=== PATIENT | male | born 1970 | race Caucasian/White ===

== ENCOUNTER → 2020-03-20 07:43 | Outpatient (BNVA) | payer MEDICAID, SELFPAY | PROVIDERS: PCP Family Medicine; Referring Provider Family Medicine; Visit Provider Surgery Vascular Surgery | DX: I83.11 Varicose veins of right lower extremity with inflammation (principal) | CPT/HCPCS: 36482 ==

== ENCOUNTER 2020-03-23 15:02 | Outpatient (REF) | payer MEDICAID, SELFPAY ==
--- NOTE | 2020-03-23 | US_ITS ---
EXAMINATION: US VENOUS ULTRASOUND WITH DOPPLER LOWER EXTREMITY, RIGHT CLINICAL INFORMATION: Post vena seal procedure COMPARISON: Previous exam 01/29/2020 TECHNIQUE: Ultrasound of the deep veins is performed from the hip to the calf with compression sonography and color and pulse Doppler assessment. Spectral analysis with color-flow imaging is performed. FINDINGS: There is normal venous compression and respiratory variation and augmented flow. The visualized common femoral vein, superficial femoral vein, profunda femoral vein, popliteal vein, and the trifurcation region shows no evidence of deep venous thrombosis. There is echogenic material seen in the greater saphenous vein 4 cm from the saphenofemoral junction post venaseal procedure. There is no significant popliteal fossa cyst. US/US venous duplex LE RT IMPRESSION: No DVT demonstrated in the right lower extremity.
== END 2020-03-23 15:03 | disposition home or self-care (01) ==
LOC: HO.US 15:02
PROVIDERS: Visit Provider Surgery Vascular Surgery
DX: M79.604 Pain in right leg (principal)
CPT/HCPCS: 93971

== ENCOUNTER → 2020-04-02 15:00 | Outpatient (BNVA) | payer MEDICAID, SELFPAY | PROVIDERS: PCP Family Medicine; Referring Provider Family Medicine; Visit Provider Surgery Vascular Surgery | DX: Z48.812 Encounter for surgical aftercare following surgery on the circulatory system (principal) | CPT/HCPCS: 99212 ==

== ENCOUNTER 2020-12-26 09:15 | Outpatient (REF) | payer MEDICAID, SELFPAY ==
[2020-12-28 08:12] LABS: HBc Num1 0.15 S/CO (0.00-0.79); HBsAGNum1 0.18 S/CO (0.00-0.99); Hepatitis B Core Antibody Nonreactive (Nonreactive); Hepatitis B Surface Antigen Negative (Negative)
[2020-12-28 08:14] LABS: ~Hepatitis C Antibody Nonreactive (Nonreactive)
[2020-12-28 08:29] LABS: ~Hepatitis B Surface Antibody REACTIVE (Nonreactive)
[2020-12-30 04:42] LABS: Hepatitis A Antibody IgG REACTIVE (Nonreactive); ~Hepatitis A Antibody IgG 13.17 S/CO (0.00-0.99)
[2020-12-30 04:52] LABS: Hepatitis A Antibody IgM 0.28 Index (0-0.79); ~Hepatitis A Antibody IgM Nonreactive (Nonreactive)
== END 2020-12-26 09:16 | disposition home or self-care (01) ==
LOC: HO.LAB 09:15
PROVIDERS: PCP Internal Medicine; Visit Provider Internal Medicine
DX: Z01.84 Encounter for antibody response examination (principal); Z11.59 Encounter for screening for other viral diseases; R79.89 Other specified abnormal findings of blood chemistry
CPT/HCPCS: 36415; 86704; 86706; 86708; 86709; 86803; 87340

== ENCOUNTER → 2021-01-20 11:09 | Outpatient (BNVA) | payer MEDICAID, SELFPAY | PROVIDERS: PCP Internal Medicine; Visit Provider Surgery | DX: K42.9 Umbilical hernia without obstruction or gangrene (principal) | CPT/HCPCS: 99202 ==

== ENCOUNTER 2021-01-25 09:24 | Outpatient (REF) | payer MEDICAID, SELFPAY ==
--- NOTE | ~2021-01-25 | US_ITS ---
EXAMINATION: US ABDOMEN COMPLETE CLINICAL INFORMATION: Abnormal findings of blood chemistry. COMPARISON: None TECHNIQUE: Real-time imaging of the abdominal viscera. FINDINGS: PANCREAS: Normal. Tail obscured by gas. ABDOMINAL AORTA: The proximal, mid, and distal segments are normal in caliber. INFERIOR VENA CAVA: Visualized portions are normal. LIVER: There is diffuse increased liver parenchymal echogenicity. No focal hepatic mass is seen. The liver is normal in size and contour. No biliary ductal dilatation. GALLBLADDER: Normal. The gallbladder is physiologically distended without evidence of stones, sludge, polyps, wall thickening or pericholecystic fluid. COMMON BILE DUCT: Normal in caliber measuring 0.6 cm in diameter. RIGHT KIDNEY: Normal. No hydronephrosis. No renal calculi or focal parenchymal lesions. The kidney measures 11.3 cm in maximum dimension. LEFT KIDNEY: Normal. No hydronephrosis. No renal calculi or focal parenchymal lesions. The kidney measures 11.5 cm in maximum dimension. SPLEEN: No focal finding. The spleen measures 13.1 cm in maximum dimension. FREE FLUID: None. US/US abdomen complete IMPRESSION: 1. There is generalized increase in hepatic echotexture, consistent with fatty infiltration or hepatocellular disease. Please correlate clinically. No focal hepatic mass or intrahepatic biliary dilatation is seen. 2. There is borderline splenomegaly. 3. Technically limited ultrasound examination of the pancreatic tail.
== END 2021-01-25 09:25 | disposition home or self-care (01) ==
LOC: HO.US 09:24
PROVIDERS: Visit Provider Internal Medicine
DX: E66.01 Morbid (severe) obesity due to excess calories (principal); R79.89 Other specified abnormal findings of blood chemistry
CPT/HCPCS: 76700

== ENCOUNTER 2021-02-05 06:37 | Day surgery (SDC) | payer MEDICAID, SELFPAY ==
--- NOTE | 2021-02-04 09:15 | HO.ANESPROP2 ---
Documented by User: Lisette Mohan NP 02/04/21 09:16 HPI - Anesthesia Eval Consult details Narrative: 50yo M for Hernia Repair Umbilical with Mesh PMFSH Active Problems Active Problems: All Active Problems (Updated 01/20/21 @ 11:31 by Dane Rodriguez MD) Varicose veins of right lower extremity with inflammation (Acute) Umbilical hernia (Acute) Hyperlipidemia (Acute) Hypertension (Acute) Obstructive sleep apnea (Acute) Morbid obesity (Acute) Past Medical History Medical History Hyperlipidemia Hypertension Morbid obesity Obstructive sleep apnea Umbilical hernia Family History Family History Father No problems noted. Mother No problems noted. Brother No problems noted. Brother No problems noted. Sister No problems noted. Sister No problems noted. Sister No problems noted. Sister No problems noted. Son No problems noted. Son No problems noted. Surgical History Surgical History (Updated 02/05/21 @ 10:06 by Robina Vaca MD) H/O knee surgery H/O prior ablation treatment Social History Social History Alcohol intake: current Alcohol intake frequency: holidays/special occasions only Alcohol type: beer Patient Tobacco Use Status: Never used Tobacco Use of substances other than those prescribed or required for medical reasons: No Have you been hit, kicked, punched, or otherwise hurt by someone within the past year? If so, by whom?: No Are you DNR?: No Advance Directives: No Advance Directives Information Provided: Yes Meds Allergies Allergy/AdvReac Type Severity Reaction Status Date / Time No Known Allergies Allergy Verified 01/29/21 10:15 [No Known Allergies*] Home Medications Medication Instructions Recorded Confirmed Last Taken Type cholecalciferol (vitamin D3) 125 125 mcg PO DAILY 01/20/21 01/29/21 Unknown History mcg (5,000 unit) capsule hydrochlorothiazide 25 mg tablet 25 mg PO DAILY 01/20/21 01/29/21 Unknown History lisinopril 10 mg tablet 10 mg PO DAILY 01/20/21 01/29/21 Unknown History multivitamin 1 tab PO DAILY 01/20/21 01/29/21 Unknown History Exam Exam Date and Time: February 04, [id number] Assessment and Plan Assessment Anesthesia Assessment: Chart Reviewed Documented by User: Robina Vaca MD 02/05/21 10:10 PMF Active Problems Active Problems: All Active Problems (Updated 01/20/21 @ 11:31 by Dane Rodriguez MD) Varicose veins of right lower extremity with inflammation (Acute) Umbilical hernia (Acute) Hyperlipidemia (Acute) Hypertension (Acute) Obstructive sleep apnea (Acute). Uses CPAP machine sometimes Morbid obesity (Acute) Past Medical History Medical History Hyperlipidemia Hypertension Morbid obesity Obstructive sleep apnea Umbilical hernia Family History Family History Father No problems noted. Mother No problems noted. Brother No problems noted. Brother No problems noted. Sister No problems noted. Sister No problems noted. Sister No problems noted. Sister No problems noted. Son No problems noted. Son No problems noted. Family history of problems with anesthesia: No Surgical History Surgical History (Updated 02/05/21 @ 10:06 by Robina Vaca MD) H/O knee surgery H/O prior ablation treatment History of Problems with Anesthesia: No Social History Social History Alcohol intake: current Alcohol intake frequency: holidays/special occasions only Alcohol type: beer Patient Tobacco Use Status: Never used Tobacco Use of substances other than those prescribed or required for medical reasons: No Have you been hit, kicked, punched, or otherwise hurt by someone within the past year? If so, by whom?: No Are you DNR?: No Advance Directives: No Advance Directives Information Provided: Yes Meds Allergies Allergy/AdvReac Type Severity Reaction Status Date / Time No Known Allergies Allergy Verified 01/29/21 10:15 [No Known Allergies*] Home Medications Medication Instructions Recorded Confirmed Last Taken Type cholecalciferol (vitamin D3) 125 125 mcg PO DAILY 01/20/21 01/29/21 Unknown History mcg (5,000 unit) capsule hydrochlorothiazide 25 mg tablet 25 mg PO DAILY 01/20/21 01/29/21 Unknown History lisinopril 10 mg tablet 10 mg PO DAILY 01/20/21 01/29/21 Unknown History multivitamin 1 tab PO DAILY 01/20/21 01/29/21 Unknown History Exam Height,Weight and Vital Signs: Height 5 ft 7 in Weight 129.727 kg Vital Signs Temp Pulse Resp BP Pulse Ox 02/05/21 06:56 97.7 F 78 18 141/81 H 96 Airway Mallampati Class: II TM Dist: >3cm Neck ROM: Full Loose/Missing/Broken Teeth: Yes (Molars extracted) Heart: RRR Lungs: CTAB Assessment and Plan Assessment Anesthesia Assessment: Anesthesia Plan Discussed Final Anesthetic Review Family History of Problems with Anesthesia: No History of Problems with Anesthesia: No NPO: Yes ASA Class: III Final Preanesthetic Review: No Changes in Pt Med Stat, Meds/Allgs Chart Reviewed, Consent Obtained/Reviewed and Anes Risks/Benef Reviewed Patient Risk: Intermediate Procedure Risk: Low Assessment/Block/Sedation in SS: Assess/Block/Sedation-SS Anesthetic Plan Anesthetic Plan: GA Disposition: Standard PACU
[2021-02-05 06:56] VITALS: BP 141/81; PULSE 78; RESP 18; TEMP 36.5; O2SAT 96
[2021-02-05 07:18] VITALS: BMI 44.8
[2021-02-05] MEDS: Lactated Ringers 1,000 ML 100 ML IVCONT (07:36)
--- NOTE | 2021-02-05 10:47 | W.PM.OPN ---
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 In view of symptoms, he wanted to proceed with repair. He understood the technique of repair with mesh. He was aware of the risks, benefits, and alternatives. The patient was brought to the operating room placed supine the table under general anesthesia via laryngeal mask airway. The abdomen is prepped and draped in the usual sterile fashion. A surgical time-out was done. The patient received cefazolin 2 g IV preoperatively The hernia was seen on the area of the umbilicus at the supra umbilical margin. This was a large hernia, about 4 cm in diameter with chronic incarceration. I infiltrated the planned line of incision with lidocaine 1%. I made a supraumbilical curvilinear transverse incision using a blade 15. This was carried down through the full-thickness of the skin subcutaneous fat electrocautery. I gently then proceeded to do sharp dissection of the umbilicus to lift this off as a flap. I used electrocautery as well as the Metzenbaum scissors to separate the hernia off of this. By doing so was able to then do sharp dissection the entire hernia contents using Metzenbaum scissors and electrocautery all the way down to the fascial level. The patient had a thick amount of subcutaneous fat in view of his morbid obesity so dissection took some time. We then proceeded to gently dissect the sac off there was the fascia and by doing so we excised most of the sac itself. This was sent as specimen. The contents of the hernia was examined carefully and this consisted of large amounts of omentum. I carefully the hernia contents off the fascial edge using Metzenbaum scissors and electrocautery I then carefully and slowly reduced the hernia. The hernia defect was small and was about 2.5 cm so reduction of this entire large omental fat took a while. Eventually I was able to completely reduce this hernia. I applied a Fabiola clamp on the fascia. I examined the underside of the fascial defect and this appeared to be clear of adhesions. I used a small-sized Ventralex mesh and positioned this flat under the fascial defect. I secured this mesh with Prolene 2 sutures to the fascial edge on both sides to go the Prolene straps. The straps were then cut flush on the fascial level. I then closed the fascia with a running Maxon 1 stitch. I applied Dexon 3-0 sutures to the umbilicus to tack this back down to the fascial layer. I reapposed the subcutaneous layer with Dexon 3-0 interrupted sutures. Skin closure was achieved with Dexon 4-0 subcuticular stitch. Steri-Strips and dressings were applied. The incision was infiltrated with Marcaine 0.5% for postop analgesia and the procedure was completed The patient tolerated procedure well. There were no complication noted. Initial and final counts of sponges and instruments were correct. Estimated blood loss was about 10 cc. The patient was extubated without difficulty and transferred to the recovery room with stable vital signs.
--- NOTE | 2021-02-05 10:54 | P.BOP_ITS ---
Brief Operative Note Date of Service: 02/05/21 Pre-op diagnosis: Umbilical hernia Post-op diagnosis: same Procedure: Repair of chronically incarcerated umbilical hernia with mesh Implants: Mesh Surgeon: Dane Rodriguez MD Anesthesia: GLMA Was an Geodetic Survey Director used for this Procedure?: No Estimated blood loss (mL): 10 Pathology: other (Hernia sac) Condition: stable Disposition: PACU
[2021-02-05 11:00] VITALS: BP 132/68; PULSE 88; RESP 16; TEMP 36.8; O2SAT 97
[2021-02-05 11:05] VITALS: BP 139/65; PULSE 81; RESP 16; O2SAT 100
[2021-02-05 11:10] VITALS: BP 146/94; PULSE 85; RESP 16; O2SAT 100
[2021-02-05 11:15] VITALS: BP 140/80; PULSE 87; RESP 16; O2SAT 95
[2021-02-05] MEDS: Acetaminophen 325 MG TABLET 650 MG PO (12:05)
[2021-02-05 12:06] VITALS: BP 124/59; PULSE 81; RESP 16; O2SAT 97
[2021-02-05] MEDS: oxyCODONE HCl Immed Release 5 MG TABLET PO (12:06)
== END 2021-02-05 13:05 | disposition home or self-care (01) ==
PROVIDERS: PCP Internal Medicine; Visit Provider Surgery
PROC: (CPT 49587; principal; 2021-02-05 11:20)
DX: K42.0 Umbilical hernia with obstruction, without gangrene (principal); I10 Essential (primary) hypertension; Z79.899 Other long term (current) drug therapy
CPT/HCPCS: 49587; 88302; C1781; J0690; J1100; J2250; J2370; J2405; J2765; J3010

== ENCOUNTER → 2021-02-19 15:05 | Outpatient (BNVA) | payer MEDICAID, SELFPAY | PROVIDERS: PCP Internal Medicine; Referring Provider Internal Medicine; Visit Provider Surgery | DX: Z48.815 Encounter for surgical aftercare following surgery on the digestive system (principal); Z87.19 Personal history of other diseases of the digestive system | CPT/HCPCS: 99212 ==

== ENCOUNTER 2021-05-20 08:58 | Outpatient (REF) | payer MEDICAID, SELFPAY | END 2021-05-20 08:59 | disposition home or self-care (01) | LOC: HO.LAB 08:58 | PROVIDERS: Visit Provider Internal Medicine | DX: Z20.822 Contact with and (suspected) exposure to COVID-19 (principal) | CPT/HCPCS: C9803; U0003; U0005 ==

== ENCOUNTER → 2021-12-16 10:30 | Outpatient (BNVA) | payer MEDICAID, SELFPAY | PROVIDERS: PCP Internal Medicine; Visit Provider Surgery | DX: R19.05 Periumbilic swelling, mass or lump (principal); E66.01 Morbid (severe) obesity due to excess calories; Z87.19 Personal history of other diseases of the digestive system | CPT/HCPCS: 99212 ==

== ENCOUNTER 2023-04-13 09:13 | Outpatient (REF) | payer OTHER, SELFPAY ==
--- NOTE | ~2023-04-13 | XR_ITS ---
EXAMINATION: XR KNEE, LEFT CLINICAL INFORMATION: Pain COMPARISON: None available. TECHNIQUE: Four views of the left knee. FINDINGS: Moderate medial joint space narrowing with marginal spurring but no fracture, dislocation or destructive process. No joint effusion. Patellofemoral spurring noted as well. XR/XR knee LT 4V IMPRESSION: Degenerative changes noted. No acute findings.
--- NOTE | ~2023-04-13 | XR_ITS ---
EXAMINATION: XR KNEE, RIGHT CLINICAL INFORMATION: Pain COMPARISON: None available. TECHNIQUE: Four views of the right knee. FINDINGS: Moderate medial joint space narrowing with marginal osteophyte formation. There is patellofemoral degenerative changes well. There is no fracture, dislocation or destructive process. No joint effusion. XR/XR knee RT 4V IMPRESSION: Degenerative change noted. No acute findings.
== END 2023-04-13 09:14 | disposition home or self-care (01) ==
LOC: HO.HHCX 09:13
PROVIDERS: Visit Provider Family Medicine
DX: M25.561 Pain in right knee (principal); M25.562 Pain in left knee
CPT/HCPCS: 73564

== ENCOUNTER 2023-05-24 10:20 | Outpatient (REF) | payer MEDICAID, SELFPAY ==
[2023-05-24 17:04] LABS: Alanine Aminotransferase 47 U/L (0-40); Albumin Level 4.2 g/dL (3.5-5.0); Alkaline Phosphatase 76 U/L (39-117); Anion Gap 12 (12-20); Aspartate Amino Transferase 31 U/L (5-37); Bilirubin Total 0.4 mg/dL (0.0-1.0); Blood Urea Nitrogen 17 mg/dL (9-16); Calcium 9.9 mg/dL (8.4-10.2); Carbon Dioxide 30 mmol/L (22-29); Chloride 100 mmol/L (96-108); Cholesterol 192 mg/dL (<200); Estimated Glomerular Filt Rate > 60; Glucose Random 80 mg/dL (60-115); HDL Cholesterol 42 mg/dL (>40); LDL Cholesterol Calculated 121 mg/dL (<100); Potassium 4.2 mmol/L (3.3-5.1); Sodium 138 mmol/L (135-145); Triglycerides 147 mg/dL (<150)
[2023-05-24 17:06] LABS: TSH reflex Free T4 3.37 uIU/mL (0.32-4.0)
[2023-05-25 07:56] LABS: HIV AB/AG Nonreactive (Nonreactive); HIV Num 1 0.05 S/CO (0.00-0.99)
== END 2023-05-24 10:21 | disposition home or self-care (01) ==
LOC: HO.CHCLDS 10:20
PROVIDERS: Visit Provider Internal Medicine
DX: Z00.00 Encounter for general adult medical examination without abnormal findings (principal); E66.01 Morbid (severe) obesity due to excess calories
CPT/HCPCS: 36415; 80053; 80061; 84443; 87389

== ENCOUNTER 2024-06-03 09:08 | Outpatient (REF) | payer OTHER, SELFPAY ==
--- NOTE | ~2024-06-03 | XR_ITS ---
CLINICAL HISTORY: Low back pain Radiographs of the lumbar spine, 3 views Comparison: None Findings: Mild levocurvature with the apex at L3/L4. No fracture. The vertebral body heights are preserved. There is mild multilevel intervertebral disc space narrowing with mild endplate osteophytosis. Mild lower lumbar facet hypertrophy. The soft tissues are normal. Impression: No acute findings. Mild degenerative change. This document has been electronically signed by: Sara Huynh MD on 06/03/2024 16:37:59
[2024-06-03 09:32] LABS: MANUAL DIFF FLAG NO
[2024-06-03 10:18] LABS: Basophils Percent Auto 0.8 % (0-2); Eosinophils Absolute Auto 0.2 X10*3/uL (0.0-0.4); Eosinophils Percent Auto 3.1 % (0-4); Hematocrit 42.1 % (42.0-52.0); Hemoglobin 14.2 g/dl (14.0-18.0); Imm Gran Abs Auto 0.03 X10*3/uL (0.00-0.03); Imm Gran Pct Auto 0.6 % (0.0-0.4); Lymphocytes Absolute Auto 1.5 X10*3/uL (1.2-4.9); Lymphocytes Percent Auto 28.6 % (20-40); Mean Corpuscular HGB Conc 33.7 g/dl (31.0-36.0); Mean Corpuscular Hemoglobin 29.5 pg (27.0-33.0); Mean Corpuscular Volume 87.3 fL (80.0-98.0); Monocytes Absolute Auto 0.4 X10*3/uL (0.1-1.2); Monocytes Percent Auto 7.2 % (2-11); Neutrophils Absolute Auto 3.1 x10*3/uL (2.0-8.3); Neutrophils Percent Auto 59.7 % (45-73); Platelet Count 246 X10*3/uL (160-400); Red Blood Count 4.82 X10*6/uL (4.60-5.80); White Blood Count 5.1 X10*3/uL (4.8-10.8)
[2024-06-03 12:21] LABS: Alanine Aminotransferase 36 U/L (0-40); Albumin Level 4.1 g/dL (3.5-5.0); Alkaline Phosphatase 74 U/L (39-117); Anion Gap 10 (12-20); Aspartate Amino Transferase 29 U/L (5-37); Blood Urea Nitrogen 14 mg/dL (9-16); Calcium 9.2 mg/dL (8.4-10.2); Carbon Dioxide 24 mmol/L (22-29); Chloride 107 mmol/L (96-108); Cholesterol 226 mg/dL (<200); Estimated Glomerular Filt Rate > 60; Glucose Random 99 mg/dL (60-115); HDL Cholesterol 44 mg/dL (>40); LDL Cholesterol Calculated 150 mg/dL (<100); Potassium 4.1 mmol/L (3.3-5.1); Sodium 137 mmol/L (135-145); TSH reflex Free T4 2.15 uIU/mL (0.32-4.0); Total Protein 7.8 g/dL (6.5-8.0); Triglycerides 164 mg/dL (<150)
[2024-06-03 12:29] LABS: Bilirubin Total 0.7 mg/dL (0.0-1.0)
== END 2024-06-03 09:09 | disposition home or self-care (01) ==
LOC: HO.XRAY 09:08
PROVIDERS: PCP Internal Medicine; Visit Provider Internal Medicine
DX: I10 Essential (primary) hypertension (principal); M54.50 Low back pain, unspecified
CPT/HCPCS: 36415; 72100; 80053; 80061; 84443; 85025

== ENCOUNTER → 2024-06-03 09:34 | Outpatient (BNV) | payer OTHER, SELFPAY | PROVIDERS: PCP Internal Medicine; Visit Provider Radiology Diagnostic Radiology | DX: M54.50 Low back pain, unspecified (principal) | CPT/HCPCS: 72100 ==

== ENCOUNTER 2024-08-09 16:16 | Outpatient (REF) | payer OTHER, SELFPAY ==
--- OUTSIDE RECORDS SUMMARY | 2024-08-09 16:50 | XMS_ITS | Encounter Summary ---
Author Organization [employer] Address [address] [place] [address] Care Team Providers Care Sr. Manager Name Role Phone Elaina Wilhelm MD Primary Care Provider [phone] Encounter Details Date Type Department Care Team ([facility] st Contact Info) Description 06/07/2024 Orders Only [facility] [address], [place] [id number] Elaina Wilhelm MD [address] [place] [address] Social History Tobacco Use Types Packs/Day Years Used Date Smoking Tobacco: Never Smokeless Tobacco: Never Alcohol Use Standard Drinks/Week Comments Yes 12 (1 standard drink = 0.6 oz pu re alcohol) Alcohol Answer Date Recorded How often do you have a drink containing alcohol ? 3 05/19/2022 How many drinks containing a lcohol do you have on a typical day when you are drinking? 2 05/19/2022 How often do you have six or more drinks on one occasion? 2 05/19/2022 Depression Answer Date Recorded Patient Health Questionnaire-9 Score 0 05/24/2023 Patient Health Questionnaire-9 Score 0 05/24/2023 Last PHQ-9: Questionnaire Data Not on file 1 07/25/2022 Housing Stability Answer Date Recorded What is your housing situation today? I have torito knight 05/16/[address] you li ve. Do you have problems with any of the following? None of the above 05/16/2023 Food Insecurity Answer Date Recorded Within the past 12 months, y ou worried that your food would run out before you got money to buy more: Never True 05/16/2023 Within the past 12 months,th e food you bought just didn't last and you didn't have enough money to get more: Never True Transportation Answer Date Recorded In the past 12 months, has l ack of transportation kept you from medical appts, meetings, work or from getting things needed for daily living? No 05/16/2023 Utilities Answer Date Recorded In the past 12 months, has t he electric, gas, oil or water company threatened to shut off services in your home? No 05/16/2023 Depression Answer Date Recorded Patient Health Questionnaire-2 Score 0 05/24/2023 Sex and Gender Information Value Date Recorded Sex Assigned at Male 03/28/2022 10:32 AM EDT Legal Sex Male 10:32 AM EDT Gender Identity Male 03/28/2022 10:32 AM EDT Sexual Orientation Straight 03/28/2022 10 :32 AM EDT documented as of this encounter Plan of Treatment Not on file documented as of this encounter Visit Diagnoses Not on filedocumented in this encounter Additional Health Concerns Assessment Noted Time PHQ-9 Depression Total Score: 0 05/24/20 23 10:12 AM EST documented as of this encounter Care Teams Sr. Manager Relationship Specialty Start Date End Date Elaina Wilhelm MD [address] [place] [id number] PCP - General Internal Medicine 10/06/20 documented as of this encounter
--- OUTSIDE RECORDS SUMMARY | 2024-08-09 16:50 | XMS_ITS | Encounter Summary ---
Author Organization [facility] Address [address] [place] [address] [address] [place] [address] Care Team Providers Care Voice Over Announcer Name Role Phone Elaina Wilhelm MD Primary Care Provider [phone] Reason for Referral * Medications - Authorized Specialty Diagnoses / Procedures Referred By Contac t Referred To Contact Diagnoses Morbid obesity (CMS/HCC) Elaina Wilhelm MD [address] [place] [address] Phone: tel: fax: Referral ID Status Reason Start Date Expiration Date V isits Requested Visits Authorized [id number] Authorized 1 1 * Imaging (Routine) - Authorized Specialty Diagnoses / Procedures Referred By Contac t Referred To Contact Radiology Diagnoses Steatosis of liver Procedures US Abdomen Complete Elaina Wilhelm MD [address] [place] [address] Phone: tel: fax: [address] Phone: tel: fax: Referral ID Status Reason Start Date Expiration Date V isits Requested Visits Authorized [id number] Authorized 08/09/2024 08/09/2025 1 1 Encounter Details Date Type Department Care Team (Late st Contact Info) Description 08/09/2024 4:00 PM EDT Office Visit [facility] [address] [place] [address] Elaina Wilhelm MD [address] [place] [address] Benign essential hypertension (Primary Dx); Dyslipidemia; Steatosis of liver; Dietary counseling; Exercise counseling; Class 3 severe obesity due to excess calories with serious comorbidity and body mass index (BMI) of 40.0 to 44.9 in adult (CMS/HCC); Screening for colon cancer; Morbid obesity (CMS/HCC); Essential (primary) hypertension; Chronic pain of right knee; Strain of left hamstring muscle, initial encounter Social History Tobacco Use Types Packs/Day Years [...] Date Recorded Patient Health Questionnaire-9 Score 0 08/09/2024 Patient Health Questionnaire-9 Score 0 08/09/2024 Last PHQ-9: Questionnaire Data Not on file 0 08/09/2024 Housing Stability Answer Date Recorded What is your housing situation today? I have torito knight 08/09/[address] you li ve. Do you have problems with any of the following? None of the above 08/09/2024 Food Insecurity Answer Date Recorded Within the past 12 months, y ou worried that your food would run out before you got money to buy more: Never True 08/09/2024 Within the past 12 months,th e food you bought just didn't last and you didn't have enough money to get more: Never True Transportation Answer Date Recorded In the past 12 months, has l ack of transportation kept you from medical appts, meetings, work or from getting things needed for daily living? No 08/09/2024 Utilities Answer Date Recorded In the past 12 months, has t he electric, gas, oil or water company threatened to shut off services in your home? No 08/09/2024 Depression Answer Date Recorded Patient Health Questionnaire-2 Score 0 08/09/2024 Internet Access Answer Date Recorded Internet Access Q1 Yes 08/09/2024 Internet Access Q2 Not on file 08/09/2024 Sex and Gender Information Value Date Recorded Sex Assigned at Male 03/28/2022 10:32 AM EDT Legal Sex Male 10:32 AM EDT Gender Identity Male 03/28/2022 10:32 AM EDT Sexual Orientation Straight 03/28/2022 10 :32 AM EDT documented as of this encounter Last Filed Vital Signs Vital Sign Reading Time Taken Comments Blood Pressure 119/70 08/09/2024 3:47 PM EDT Pulse 83 08/09/2024 3:47 PM EDT Temperature 36.7 ??C (98 ??F) 08/09/2024 3:47 PM EDT Respiratory Rate 20 08/09/2024 3:47 PM EDT Oxygen Saturation 97% 08/09/2024 3:47 PM EDT Inhaled Oxygen Concentration - - Weight 128 kg (283 lb) 08/09/2024 3:47 PM EDT Height 170.2 cm (5' 7 ) 08/09/2024 3:47 PM EDT Body Mass Index 44.32 08/09/2024 3:47 PM EDT documented in this encounter Progress Notes * Elaina Wilhelm MD - 08/09/2024 4:00 PM EDT Subjective Patient ID: Jerald Woods is a 54 y.o. male who presents for No chief complaint on file.. HPI 1) history of hypertension. Patient is very compliant to his medication. He needs his medications to be refilled today. 2) history of chronic low back pain. Had a recent x-ray of the lumbar spine showing mild degenerative disc disease. He works on his feet about 10 hours a day. 3) 2 to 3 months history of right knee pain exacerbated by standing for long. Of time. No swelling fever or other constitutional symptoms reported. 4) history of severe obesity. Prescribed Zepbound in April which was approved but unfortunately patient had to travel and could not pick up attendant the prescription. He was told to get the prescription resent to his pharmacy. Patient Active Problem List Diagnosis Benign essential hypertension Chronic cough Dyslipidemia Lung mass Morbid obesity (CMS/HCC) Sleep apnea Steatosis of liver Chronic pain of both knees Strep throat Current Outpatient Medications on File Prior to Visit Medication Sig Dispense Refill Acetaminophen Extra Strength 500 MG tablet TAKE 1 TABLET BY MOUTH EVERY 6 HOURS NEEDED 90 tablet0 amoxicillin (Amoxil) 500 MG capsule Take 1 tab po bid for 10 days 20 capsule 0 cholecalciferol (D3-5) 5,000 Units tablet Take 1 tablet by mouth at bed time. cholecalciferol (Vitamin D-3) 125 MCG (5000 UT) capsule Take 125 mcg by mouth in the morning. fluconazole (Diflucan) 150 MG tablet 100 mg once a day x 5 days 5 tablet 0 ketoconazole (NIZOral) 2 % shampoo APPLY TOPICALLY TO THE AFFECTED AREA(S) TWICE A WEEK 120 mL 2 [DISCONTINUED] Diclofenac Sodium 1 % gel To apply to the affected area 3 times a day 100 g 1 [DISCONTINUED] hydroCHLOROthiazide (HYDRODiuril) 25 MG tablet TAKE 1 TABLET BY MOUTH EVERY DAY 90 tablet 0 [DISCONTINUED] lisinopril 10 MG tablet TAKE 1 TABLET BY MOUTH EVERY DAY 90 tablet 1 [DISCONTINUED] Multiple Vitamin (Multivitamin) tablet TAKE 1 TABLET BY MOUTH EVERY DAY IN THE MORNING 90 tablet 0 [DISCONTINUED] Tirzepatide-Weight Management (Zepbound) 2.5 MG/0.5ML solution auto-injector Inject 0.5 mL (2.5 mg) under the skin 1 (one) time per week. 2 mL 1 No current facility-administered medications on file prior to visit. No Known Allergies Review of Systems Constitutional: Negative for appetite change, chills and diaphoresis. Eyes: Negative for photophobia, pain and redness. Respiratory: Negative for cough and choking. Musculoskeletal: Positive for arthralgias. Negative for gait problem and joint swelling. Objective Physical Exam Constitutional: General: He is not in acute distress. Appearance: Normal appearance. He is obese. He is not ill-appearing, toxic- appearing or diaphoretic. Cardiovascular: Rate and Rhythm: Normal rate. Pulmonary: Effort: Pulmonary effort is normal. Musculoskeletal: General: Normal range of motion. Right knee: No bony tenderness. Normal range of motion. No tenderness. Left knee: No bony tenderness. Normal range of motion. No tenderness. Neurological: Mental Status: He is alert. Assessment/Plan Diagnoses and all orders for this visit: Benign essential hypertension Comments: BP is at goal To continue with the current medication for now. Dyslipidemia Comments: Repeat lipid panel prior to the next visit Medication will be adjusted accordingly Low-cholesterol diet Orders: - Lipid Panel, Standard; Future Steatosis of liver Comments: Repeat ultrasound of the liver Patient will be contacted with results. Orders: - US Abdomen Complete; Future Dietary counseling Exercise counseling Class 3 severe obesity due to excess calories with serious comorbidity and body mass index (BMI) of40.0 to 44.9 in adult ([facility]) Reviewed indications for pharmacotherapy with patient, which is treatment for patient w/ obesity ora patient with a BMI > 27 w/ CV risk factors who have failed lifestyle modifications alone. These are always prescribed in combination with ongoing lifestyle modification; and will be titrated up from the lowest dose. Will start patient on Zepbound, given know efficacy. Reviewed mechanism of action with patient. Discussed side effects with patient: nausea, vomiting, diarrhea & risk of pancreatitis. No contraindications identified: , hx of pancreatitis, hx of medullary thyroid cancer or MEN 2. Discussed calorie deficit, recommended reduction of 20-30% of maintenance calories; ash kier boiler referral offered. Recommended to decrease soda and sugary beverage consumption. Recommended at least 20 g per meal of protein to assist with satiety. Recommended at least 150 min/week of moderate intensity exercise. Screening for colon cancer - Cologuard?? colon cancer screening; Future Morbid obesity ([facility]) Comments: Weight loss recommended Orders: - Tirzepatide-Weight Management (Zepbound) 2.5 MG/0.5ML solution auto-injector; Inject 0.5 mL (2.5 mg) under the skin 1 (one) time per week. Essential (primary) hypertension - lisinopril 10 MG tablet; Take 1 tablet (10 mg) by mouth Once per day. Chronic pain of right knee - XR Knee 4+ Views Right; Future - Diclofenac Sodium 1 % gel; To apply to the affected area 3 times a day Strain of left hamstring muscle, initial encounter - Diclofenac Sodium 1 % gel; To apply to the affected area 3 times a day Other orders - hydroCHLOROthiazide (HYDRODiuril) 25 MG tablet; TAKE 1 TABLET BY MOUTH EVERY DAY - Multiple Vitamin (Multivitamin) tablet; TAKE 1 TABLET BY MOUTH EVERY DAY IN THE MORNING documented in this encounter Plan of Treatment Scheduled Orders Name Type Priority Associated Diagnoses Orde r Schedule Lipid Panel, Standard Lab Routine Dyslipidemia Expected: 08/09/2024 (Approximate), Expires: 08/09/2025 US Abdomen Complete Imaging Routine Steatosis of liver Expected: 08/09/2024, Expires: 08/09/2025 Cologuard?? colon cancer screening Lab Routine Screening for colon cancer Expected: 08/09/2024 (Approximate), Expires: 08/09/2025 XR Knee 4+ Views Right Imaging Routine Chronic pain of right knee Expected: 08/09/2024, Expires: 08/09/2025 documented as of this encounter Visit Diagnoses Diagnosis Benign essential hypertension- Primary Essential hypertension, benign Dyslipidemia Other and unspecified hyperlipidemia Steatosis of liver Other chronic nonalcoholic liver disease Dietary counseling Dietary surveillance and counseling Exercise counseling Class 3 severe obesity due to excess calories with serious comorbidity and body mass index (BMI) of 40.0 to 44.9 in adult (CMS/HCC) Screening for colon cancer Special screening for malignant neoplasms, colon Morbid obesity (CMS/HCC) Morbid obesity Essential (primary) hypertension Unspecified essential hypertension Chronic pain of right knee Strain of left hamstring muscle, initial encounter documented in this encounter Additional Health Concerns Assessment Noted Time PHQ-9 Depression Total Score: 0 08/10/19 25 3:49 PM EDT documented as of this encounter Care Teams Voice Over Announcer Relationship Specialty Start Date End Date Elaina Wilhelm MD [address] [place] [address] PCP - General Internal Medicine 10/06/20 documented as of this encounter
--- OUTSIDE RECORDS SUMMARY | 2024-08-09 16:50 | XMS_ITS | Encounter Summary ---
Author Organization [facility] Address [address] [facility] [address] [place] [address] Care Team Providers Care Tile Roofer Name Role Phone Elaina Wilhelm MD Primary Care Provider [phone] Encounter Details Date Type Department Care Team (Latest Contact Info) Description 08/09/2024 Travel Social History Tobacco Use Types Packs/Day Years [...] documented as of this encounter Care Teams Tile Roofer Relationship Specialty Start Date End Date Elaina Wilhelm MD [address] [place] [address] PCP - General Internal Medicine 10/06/20 documented as of this encounter
--- OUTSIDE RECORDS SUMMARY | 2024-08-09 16:50 | XMS_ITS | Encounter Summary ---
Author Organization [facility] Address [address] [facility] [address] [place] [address] Care Team Providers Care Center Medical And Lab Director Name Role Phone Elaina Wilhelm MD Primary Care Provider [phone] Reason for Visit * Reason Comments Pre-visit Planning (Unable to reach for PVP screening, LVM) Encounter Details Date Type Department Care Team ([facility] Contact Info) Description 08/02/2024 Patient Outreach [facility] [address] [place] [address] Elaina Wilhelm MD [address] [place] [address] Pre-visit Planning ((Unable to reach for PVP screening, LVM)) Social History Tobacco Use Types Packs/Day Years [...] AM EDT documented as of this encounter Progress Notes * Domenica Díaz - 08/02/2024 10:40 AM EST EMELIA Metzger. Placed outbound call to patient to complete pre-visit planning. No answer at this time. Patient name and were not confirmed. CC left voicemail requesting return call. Direct contact information provided. documented in this encounter Plan of Treatment Not on file documented as of this encounter Visit Diagnoses Not on filedocumented in this encounter Additional Health Concerns Assessment Noted Time PHQ-9 Depression Total Score: 0 05/24/20 23 10:12 AM EST documented as of this encounter Care Teams Center Medical And Lab Director Relationship Specialty Start Date End Date Elaina Wilhelm MD [address] [place] [id number] PCP - General Internal Medicine 10/06/20 documented as of this encounter
--- OUTSIDE RECORDS SUMMARY | 2024-08-09 16:50 | XMS_ITS | Encounter Summary ---
Author Organization [facility] Address [address] [facility] [address] [place] [address] Care Team Providers Care Welding Machine Operator Name Role Phone Elaina Wilhelm MD Primary Care Provider [phone] Reason for Referral * Imaging (Routine) - Closed Specialty Diagnoses / Procedures Referred By Contjoao t Referred To Contact Radiology Diagnoses Transaminitis Procedures US Abdomen Complete Elaina Wilhelm MD [address] [place] [address] Phone: tel: fax: [address] Phone: tel: fax: Referral ID Status Reason Start Date Expiration Date Visits Re quested Visits Authorized [id number] Closed 05/25/2023 05/24/2024 1 1 Encounter Details Date Type Department Care Team (Late st Contact Info) Description 05/25/2023 Orders Only [facility] [address] [place], [place] [phone] Elaina Wilhelm MD [address] [place], [place] [phone] Transaminitis (Primary Dx); Morbid obesity (CMS/HCC) Social History Tobacco Use Types Packs/Day Years [...] as of this encounter Plan of Treatment Scheduled Orders Name Type Priority Associated Diagnoses Orde r Schedule US Abdomen Complete Imaging Routine Transaminitis Expected: 05/25/2023, Expires: 05/25/2024 documented as of this encounter Visit Diagnoses Diagnosis Transaminitis- Primary Nonspecific elevation of levels of transaminase or lactic acid dehydrogenase (LDH) Morbid obesity (CMS/HCC) Morbid obesity documented in this encounter Additional Health Concerns Assessment Noted Time PHQ-9 Depression Total Score: 0 05/24/20 23 10:12 AM EST documented as of this encounter Care Teams Welding Machine Operator Relationship Specialty Start Date End Date Elaina Wilhelm MD [address] [place] [id number] PCP - General Internal Medicine 10/06/20 documented as of this encounter
--- OUTSIDE RECORDS SUMMARY | 2024-08-09 16:50 | XMS_ITS | Encounter Summary ---
Author Organization [employer] [facility] Address [address] [facility] [address] [place] [address] Care Team Providers Care Russian History Professor Name Role Phone Elaina Wilhelm MD Primary Care Provider [phone] Reason for Visit * Reason Onset Date Comments chart prep 08/08/2024 Encounter Details Date Type Department Care Team ([facility] st Contact Info) Description 08/08/2024 Telephone [facility] [address] [place], [place] [phone] Elaina Wilhelm MD [address] [place] [address] chart prep Social History Tobacco Use Types Packs/Day Years [...] AM EDT documented as of this encounter Miscellaneous Notes * Telephone Encounter - Audrey Barriga [place] - 08/08/2024 1:38 PM EDT Chart Prep Labs: done Images: done Vaccines due: yes Referrals: pending appt Screenings: colonoscopy Overdue care gaps: Sbirt, SDOH, PHQ-9 documented in this encounter Plan of Treatment Not on file documented as of this encounter Visit Diagnoses Not on filedocumented in this encounter Additional Health Concerns Assessment Noted Time PHQ-9 Depression Total Score: 0 05/24/20 23 10:12 AM EST documented as of this encounter Care Teams Russian History Professor Relationship Specialty Start Date End Date Elaina Wilhelm MD [address] [place] [address] PCP - General Internal Medicine 10/06/20 documented as of this encounter
--- OUTSIDE RECORDS SUMMARY | 2024-08-09 16:50 | XMS_ITS | Encounter Summary ---
Author Organization [employer] Address [address] [facility] [address] [place] [address] Care Team Providers Care Leaf Tinner Name Role Phone Elaina Wilhelm MD Primary Care Provider [phone] Encounter Details Date Type Department Care Team ([facility] st Contact Info) Description 08/28/2023 Orders Only [facility] [address] [place], [place] [phone] Elaina Wilhelm MD [address] [place] [address] Severe obesity (BMI >= 40) (CMS/HCC) Social History Tobacco Use Types Packs/Day [...] as of this encounter Visit Diagnoses Diagnosis Severe obesity (BMI >= 40) (CMS/HCC) documented in this encounter Additional Health Concerns Assessment Noted Time PHQ-9 Depression Total Score: 0 05/24/20 23 10:12 AM EST documented as of this encounter Care Teams Leaf Tinner Relationship Specialty Start Date End Date Elaina Wilhelm MD [address] [place] [id number] PCP - General Internal Medicine 10/06/20 documented as of this encounter
--- OUTSIDE RECORDS SUMMARY | 2024-08-09 16:50 | XMS_ITS | Clinical Summary ---
Author Organization [employer] Address [address] [facility] 7[address] [place] [address] Care Team Providers Care Director Investor Relations Name Role Phone Elaina Wilhelm MD Primary Care Provider [phone] Allergies No known active allergies Medications cholecalciferol (D3-5) 5,000 Units tablet Take 1 tablet by mouth at bed time. 03/24/20 21 Active cholecalciferol (Vitamin D-3) 125 MCG (5000 UT) capsule Take 125 mcg by mouth in the morning. 03/11/20 22 Active fluconazole (Diflucan) 150 MG tabletIndicatio ns:Toe web intertrigo 100 mg once a day x 5 days 5 tablet 05/19/20 22 Active amoxicillin (Amoxil) 500 MG capsule Take 1 tab po bid for 10 days 20 capsule 06/07/19 24 Active ketoconazole (NIZOral) 2 % shampooIndicati ons:Seborrheic dermatitis,Dand ruff APPLY TOPICALLY TO THE AFFECTED AREA(S) TWICE A WEEK 120 mL 2 11/06/19 24 Active Acetaminophen Extra Strength 500 MG tablet TAKE 1 TABLET BY MOUTH EVERY 6 HOURS NEEDED 90 tablet 05/08/20 24 Active Tirzepatide-Rick ght Management (Zepbound) 2.5 MG/0.5ML solution auto-injectorIn dications:Morbi d obesity (CMS/HCC) Inject 0.5 mL (2.5 mg) under the skin 1 (one) time per week. 2 mL 1 08/10/19 25 Active lisinopril 10 MG tabletIndicatio ns:Essential (primary) hypertension Take 1 tablet (10 mg) by mouth Once per day. 90 tablet 3 08/10/19 25 Active hydroCHLOROthia zide (HYDRODiuril) 25 MG tablet TAKE 1 TABLET BY MOUTH EVERY DAY 90 tablet 3 08/10/19 25 Active Multiple Vitamin (Multivitamin) tablet TAKE 1 TABLET BY MOUTH EVERY DAY IN THE MORNING 90 tablet 08/10/19 25 Active Diclofenac Sodium 1 % gelIndications: Chronic pain of right knee,Strain of left hamstring muscle, initial encounter To apply to the affected area 3 times a day 100 g 1 08/10/19 25 Active Diclofenac Sodium 1 % gelIndications: Strain of left hamstring muscle, initial encounter To apply to the affected area 3 times a day 100 g 1 10/22/19 23 025 Discontinued(Re order (will not trigger notification to Pharmacy)) lisinopril 10 MG tabletIndicatio ns:Essential (primary) hypertension TAKE 1 TABLET BY MOUTH EVERY DAY 90 tablet 1 04/23/20 24 025 Discontinued(Re order (will not trigger notification to Pharmacy)) hydroCHLOROthia zide (HYDRODiuril) 25 MG tablet TAKE 1 TABLET BY MOUTH EVERY DAY 90 tablet 05/08/20 24 025 Discontinued(Re order (will not trigger notification to Pharmacy)) Multiple Vitamin (Multivitamin) tablet TAKE 1 TABLET BY MOUTH EVERY DAY IN THE MORNING 90 tablet 05/08/20 24 025 Discontinued(Re order (will not trigger notification to Pharmacy)) Tirzepatide-Rick ght Management (Zepbound) 2.5 MG/0.5ML solution auto-injectorIn dications:Morbi d obesity (CMS/HCC) Inject 0.5 mL (2.5 mg) under the skin 1 (one) time per week. 2 mL 1 05/17/20 24 025 Discontinued(Re order (will not trigger notification to Pharmacy)) Active Problems Problem Noted Date Diagnosed Date Strep throat 06/07/2023 Overview (06/07/2023): -rapid strep positive -amoxicillin 500mg bid for 10 days -droplet precautions discussed -supportive care discussed -ER precautions given -note given for work 06/07/23 Assessment & Plan (06/07/2023 2:20 PM EST): -rapid strep positive -amoxicillin 500mg bid for 10 days -droplet precautions discussed -supportive care discussed -ER precautions given -note given for work 06/07/23 Chronic pain of both knees 04/12/2023 Assessment & Plan (04/12/2023 4:37 PM EST): Likely musculoskeletal in setting of overuse and excessive weight bearing. Non- focal, normal motor exam without neurological deficits. No evidence of infection. -Recommend physical therapy -x rays ordered -orthopedics referral given chronicity and history. -Lifting precaution sand stretching reviewed. -ER precaution discussed. Steatosis of liver 04/13/2021 Morbid obesity 11/13/2020 Sleep apnea 04/03/2020 Lung mass 02/12/2018 Benign essential hypertension 02/07/2018 Chronic cough 02/07/2018 Dyslipidemia 02/07/2018 Encounters Date Type Department Care Team Description 08/09/2024 4:00 PM EDT Office Visit [facility] [address] [place] [address] Elaina Wilhelm MD Benign essential hypertension (Primary Dx); Dyslipidemia; Steatosis of liver; Dietary counseling; Exercise counseling; Class 3 severe obesity due to excess calories with serious comorbidity and body mass index (BMI) of 40.0 to 44.9 in adult (CMS/HCC); Screening for colon cancer; Morbid obesity (CMS/HCC); Essential (primary) hypertension; Chronic pain of right knee; Strain of left hamstring muscle, initial encounter 08/09/2024 Travel 08/08/2024 Telephone [facility] [address] [place] [address] Elaina Wilhelm MD chart prep 08/02/2024 Patient Outreach [facility] [address] [place] [address] Elaina Wilhelm MD Pre-visit Planning ((Unable to reach for PVP screening, LVM)) 2024 Telephone [facility] [address] [place] [address] Elaina Wilhelm MD Prior Authorization (Zepbound ) 06/07/2024 Orders Only [facility] [address] [place] [address] Elaina Wilhelm MD 06/07/2024 Telephone [facility] [address] [place] [address] Elaina Wilhelm MD Prior Authorization 06/04/2024 Telephone [facility] [address] [place] [address] Jessie Mcnally, RN Error (VOID this visit) 06/04/2024 Telephone [facility] [address] [place] [address] Jessie Mcnally, RN Results 05/20/2024 Telephone [facility] [address] [place] [address] Elaina Wilhelm MD Prior Authorization 05/17/2024 4:00 PM EST Office Visit [facility] [address] [place] [address] Elaina Wilhelm MD Benign essential hypertension (Primary Dx); Morbid obesity (CMS/HCC); Chronic pain of both knees; Acute right-sided low back pain without sciatica; Plantar fasciitis of left foot 05/17/2024 Travel from Last 3 Months Immunizations Name Administration Dates Next Due Influenza injectable quadrivalent preservative f ree 05/19/2022 Influenza, seasonal, injectable, preservative fr ee 05/17/2024 Pfizer Covid-19 Vaccine 12+ 05/17/2024 Family History Medical History Relation Name Comments Heart disease Father Heart disease Mother No Known Problems Paternal Grandfather Bone cancer Sister Relation Name Status Comments Father Mother Paternal Grandfather Sister Social History Tobacco Use Types Packs/Day Years Used Date Smoking Tobacco: Never Smokeless Tobacco: Never Tobacco Cessation:Counseling Given: Not Answered Alcohol Use Standard Drinks/Week Comments Yes 12 [...] Orientation Straight 03/28/2022 10 :32 AM EDT Last Filed Vital Signs Vital Sign Reading [...] Mass Index 44.32 08/09/2024 3:47 PM EDT Plan of Treatment Health Maintenance Due Date Last Done Comments CT Colonography 1972 Colonoscopy 1972 Colorectal Cancer Screening 1972 FIT DNA/Cologuard 1972 FIT 1972 FOBT 1972 Sigmoidoscopy 1972 Family Planning (PISQ) 1987 Hepatitis A Vaccines (1 of 2 - Risk 2-dose series) 1991 Hepatitis B Vaccines (1 of 3 - 19+ 3-dose series) 1991 Pneumococcal Vaccine: 50+ Years (1 of 1 - PCV) 2022 Zoster Vaccines (1 of 2) 2022 Tobacco Screening 05/17/2025 05/17/2024 Alcohol/Substance Use Screening 08/09/2025 08/09/2024 Depression Screening 08/09/2025 08/09/2024, 08/10/19 SDOH Screening 08/09/2025 08/09/2024 DTaP/Tdap/Td Vaccines (2 - Td or Tdap) 06/27/2027 06/27/2017 Lipid Panel 06/03/2029 06/03/2024, 04/29, 05/20/2022, Additional history exists RSV Patients and Patients Aged 60 years or older (1 - 1-dose 75+ series) 2047 Hepatitis C Screening Completed 12/26/2020 HIV Screening Completed 05/24/2023, 11/16/2020 COVID-19 Vaccine Completed 05/17/2024, , 09/25/2020 Influenza Vaccine Completed 05/17/2024, , 06/27/2017 HIB Vaccines Aged Out No longer eligi ble based on patient's age to complete this topic HPV Vaccines Aged Out No longer eligi ble based on patient's age to complete this topic IPV Vaccines Aged Out No longer eligi ble based on patient's age to complete this topic Meningococcal Vaccine Aged Out No kiana netta eligible based on patient's age to complete this topic RSV under 20 months Aged Out No longe r eligible based on patient's age to complete this topic Rotavirus Vaccines Aged Out No longer eligible based on patient's age to complete this topic Procedures Procedure Name Priority Date/Time Associated Diagnosis Comments XR LUMBAR SPINE 2-3 VIEWS Routine 06/03/2024 4:37 PM EST Acute right-sided low back pain without sciatica TSH W/REFLEX TO FT4 Routine 06/03/2024 9 :31 AM EST Benign essential hypertension LIPID PANEL, STANDARD Routine 06/03/2024 9:31 AM EST Benign essential hypertension CBC WITH AUTO DIFFERENTIAL Routine 06/03/2024 9:31 AM EST Benign essential hypertension COMPREHENSIVE METABOLIC PANEL Routine 06/03/2024 9:31 AM EST Benign essential hypertension HIV 1/2 ANTIGEN/ANTIBODY, FOURTH GENERATION W/RFL Routine 05/24/2023 10:22 AM EST Annual physical exam Severe obesity (BMI >= 40) (CMS/HCC) ZZZ HISTORICAL HEPATITIS C ANTIBODY RFLX Routine 12/26/2020 9:25 AM EDT from Last 3 Months or Most Recently Relevant to Health Maintenance Results * XR Lumbar Spine 2-3 Views (06/03/2024 4:37 PM EST) Anatomical Region Laterality Modality Spine, L-spine Radiographic Lalita ging 06/03/2024 4:37 PM EST Narrative 06/03/2024 4:39 PM EST ? [facility] ?[address] ?[place] [address] ?XRay Report ? Signed ? Patient: Taylor Woods,Jerald ?MR#: M ?? [id number] ? : 1970 ?Acct:[id number] ? Age/Sex: 53 / M ?ADM Date: 01/06/25 ? Loc: HO.XRAY ? Attending Dr: Elaina Wilhelm MD ? Ordering Physician: Elaina Wilhelm MD ?? Date of Service: 06/03/24 ?? Procedure(s): XR lumbar spine 2-3V ?? Accession Number(s): [id number] ? cc: Elaina Wilhelm MD ? CLINICAL HISTORY: Low back pain ? Radiographs of the lumbar spine, 3 views ? Comparison: None ? Findings: ?? Mild levocurvature with the apex at L3/L4. ?? No fracture. ?? The vertebral body heights are preserved. There is mild multilevel ?? intervertebral disc space narrowing with mild endplate osteophytosis. ?? Mild lower lumbar facet hypertrophy. ?? The soft tissues are normal. ? Impression: ?? No acute findings. ?? Mild degenerative change. ? This document has been electronically signed by: Sara Huynh MD ?? on 06/03/2024 16:37:59 ? Dictated By: ?Sara Deleon MD ? Signed By: ?<Electronically signed by Sara Deleon MD in OV> ? 06/03/24 1638 ? DD/ 1637 ? TD/TT: 06/03/24 1637 ? Automobile Contract Clerk: ? Procedure Note Donotkenjiinterpreter, Image - 06/03/[address] [address] XRay Report Signed Patient: Jerald Matos#: M [id number] : 1970Acct:[id number] Age/Sex: 53 / MADM Date: 06/03/24 Loc: J LUIS Attending Dr: Elaina Wilhelm MD Ordering Physician: Elaina Wilhelm MD Date of Service: 06/03/24 Procedure(s): XR lumbar spine 2-3V Accession Number(s): [id number] cc: Elaina Wilhelm MD CLINICAL HISTORY: Low back pain Radiographs of the lumbar spine, 3 views Comparison: None Findings: Mild levocurvature with the apex at L3/L4. No fracture. The vertebral body heights are preserved. There is mild multilevel intervertebral disc space narrowing with mild endplate osteophytosis. Mild lower lumbar facet hypertrophy. The soft tissues are normal. Impression: No acute findings. Mild degenerative change. This document has been electronically signed by: Sara Huynh MD on 06/03/2024 16:37:59 Dictated By: Sara Deleon MD Signed By: <Electronically signed by Sara Deleon MD in OV> 06/03/24 1638 DD/ 1637 TD/TT: 06/03/24 1637 Automobile Contract Clerk: us Elaina Wilhelm MD IMG XR PROCEDURES Final Res ult * TSH W/Reflex to FT4 (06/03/2024 9:31 AM EST) TSH reflex Free T4 2.15 0.32 - 4.0 uIU/mL [facility] Blood Venous blood specimen / Unknown 06/03/2024 9:31 AM EST 06/03/2024 9:31 AM EST us Elaina Wilhelm MD LAB BLOOD ORDERABLES Final Result [facility] [address] [place] [phone] * (ABNORMAL) CBC auto differential (06/03/2024 9:31 AM EST) White Blood Count 5.1 4.8 - 10.8 X10*3/uL [facility] Red Blood Count 4.82 4.60 - 5.80 X10*6/uL [facility] Hemoglobin 14.2 14.0 - 18.0 g/dl [facility] Hematocrit 42.1 42.0 - 52.0 % [facility] Mean Corpuscular Volume 87.3 80.0 - 98.0 fL [facility] Mean Corpuscular Hemoglobin 29.5 27.0 - 33.0 pg [facility] Mean Corpuscular HGB Conc 33.7 31.0 - 36.0 g/dl [facility] Red Cell Distribution Width 12.0 11.0 - 16.0 % [facility] Platelet Count 246 160 - 400 X10*3/uL [facility] Mean Platelet Volume 10.0 9.4 - 12.4 fL [facility] Neutrophils Percent Auto 59.7 45 - 73 % [facility] Imm Gran Pct Auto 0.6(H) 0.0 - 0.4 % [facility] Lymphocytes Percent Auto 28.6 20 - 40 % [facility] Monocytes Percent Auto 7.2 2 - 11 % [facility] Eosinophils Percent Auto 3.1 0 - 4 % [facility] Basophils Percent Auto 0.8 0 - 2 % [facility] NRBC Pct Auto 0.0 0.0 - 0.2 /100WBC [facility] Neutrophils Absolute Auto 3.1 2.0 - 8.3 x10*3/uL [facility] Imm Gran Abs Auto 0.03 0.00 - 0.03 X10*3/uL [facility] Lymphocytes Absolute Auto 1.5 1.2 - 4.9 X10*3/uL [facility] Monocytes Absolute Auto 0.4 0.1 - 1.2 X10*3/uL [facility] Eosinophils Absolute Auto 0.2 0.0 - 0.4 X10*3/uL [facility] Basophils Absolute Auto 0.0 0.0 - 0.2 X10*3/uL [facility] NRBC Abs Auto 0.000 0.0 - 0.012 X10*3/uL [facility] Blood Venous blood specimen / Unknown 06/03/2024 9:31 AM EST 06/03/2024 9:31 AM EST us Elaina Wilhelm MD LAB BLOOD ORDERABLES Final Result [facility] [address] [place] [phone] * (ABNORMAL) Lipid Panel, Standard (06/03/2024 9:31 AM EST) Triglycerides 164(H) <150 mg/dL [facility] Comment:Desirable Triglyceri de: less than 150 mg/dLBorderline High Triglyceride 150-199 mg/dLHigh Triglyceride: 200-499 mg/dLVery High Triglyceride: greater than or equal to 5OO mg/dL Cholesterol 226(H) <200 mg/dL [facility] Comment:Desirable Cholestero l: less than 200 mg/dLBorderline High Cholesterol: 200-239 mg/dLHigh Cholesterol: greater than 239 mg/dL LDL Cholesterol Calculated 150(H) <100 mg/dL [facility] Comment:Desirable LDL: less than 100 mg/dLNear Optimal/Above Optimal LDL: 110- 129 mg/dLBorderline High LDL: 130-159 mg/dLHigh LDL: 160-189 mg/dLVery High LDL: greater than or equal to 190 mg/dL HDL Cholesterol 44 >40 mg/dL [facility] Comment:Desirable HDL: great er than 40 mg/dL Note: This HDL assay may give artificially low results in patients with liver disease. Blood Venous blood specimen / Unknown 06/03/2024 9:31 AM EST 06/03/2024 9:31 AM EST us Elaina Wilhelm MD LAB BLOOD ORDERABLES Final Result [facility] [address] [place] [phone] * (ABNORMAL) Comprehensive Metabolic Panel (06/03/2024 9:31 AM EST) Sodium 137 135 - 145 mmol/L [facility] Potassium 4.1 3.3 - 5.1 mmol/L [facility] Chloride 107 96 - 108 mmol/L [facility] Carbon Dioxide 24 22 - 29 mmol/L [facility] Anion Gap 10(L) 12 - 20 [facility] Urea Nitrogen (BUN) 14 9 - 16 mg/dL [facility] Creatinine, Serum 0.87 0.5 - 1.4 mg/dL [facility] Estimated Glomerular Filt Rate >60 [facility] Comment:Chronic Kidney Disea se: Estimated GFR < 60 mL/min/1.80a9Atwcgt Kidney Disease: Estimated GFR < 15 mL/min/1.73m2 Glucose 99 60 - 115 mg/dL [facility] Calcium 9.2 8.4 - 10.2 mg/dL [facility] Bilirubin, Total 0.7 0.0 - 1.0 mg/dL [facility] Aspartate Amino Transferase 29 5 - 37 U/L [facility] Alanine Aminotransferase 36 0 - 40 U/L [facility] Total Protein 7.8 6.5 - 8.0 g/dL [facility] Albumin Level 4.1 3.5 - 5.0 g/dL [facility] Alkaline Phosphatase 74 39 - 117 U/L [facility] Blood Venous blood specimen / Unknown 06/03/2024 9:31 AM EST 06/03/2024 9:31 AM EST us Elaina Wilhelm MD LAB BLOOD ORDERABLES Final Result Performing Organization Address [facility]/ZIP Co de Phone Number [facility] [address] [place] [address] [phone] * HIV-1/2 Antigen and Antibodies, Fourth Generation, with Reflexes (05/24/2023 10:22 AM EST) HIV AB/AG Nonreactive Nonreactive [facility] Comment:HIV-1 p24 Ag and/or HIV-1/HIV-2 Ab not detected.A test result that is nonreactive does not exclude thepossibility of exposure to or infection with HIV-1 and/orHIV-2. Nonreactive results in this assay for individualswith prior exposure to HIV-1 and/or HIV-2 may be due toantigen and antibody levels that are below the limit ofdetection of this assay.The [employer] HIV Ag/Ab Combo assay result andsupplemental assay results should be interpreted inconjunction with the patient's clinical presentation,history and other laboratory results. If the results areinconsistent with clinical evidence, additional testing issuggested to confirm the result. Blood Venous blood specimen / Unknown 05/24/2023 10:22 AM EST 05/24/2023 2:09 PM EST us Elaina Wilhelm MD LAB BLOOD ORDERABLES Final Result [facility] [address] [place] [phone] * HEPATITIS C ANTIBODY RFLX (12/26/2020 9:25 AM EDT) Hepatitis C Antibody Nonreactive Nonreactive [facility] Comment: Antibodies to HCV not detected; does not exclude early acute HCV infection. 12/26/2020 9:25 AM EDT us Elaina Wilhelm MD HISTORICAL/NON ORDERABLE KALPESH ERIC Final Result [facility] [address] from Last 3 Months or Most Recently Relevant to Health Maintenance Insurance [facility] [employer] [facility] Care Teams Director Investor Relations Relationship Specialty Start Date End Date Elaina Wilhelm MD [address] [place] [phone] PCP - General Internal Medicine 10/06/20
[2024-08-09 18:19] LABS: Cholesterol 227 mg/dL (<200); HDL Cholesterol 46 mg/dL (>40); LDL Cholesterol Calculated 149 mg/dL (<100); Triglycerides 162 mg/dL (<150)
== END 2024-08-09 16:17 | disposition home or self-care (01) ==
LOC: HO.CHCLDS 16:16
PROVIDERS: Visit Provider Internal Medicine
DX: E78.5 Hyperlipidemia, unspecified (principal)
CPT/HCPCS: 36415; 80061

== ENCOUNTER 2024-08-21 10:18 | Outpatient (REF) | payer OTHER, SELFPAY ==
--- NOTE | ~2024-08-21 | XR_ITS ---
EXAMINATION: XR KNEE 4 OR MORE VIEWS RIGHT HISTORY: right knee pain COMPARISON: Comparison is made with the prior examination dated 04/13/2023. FINDINGS: Four views of the right knee are submitted. Osseous mineralization is normal. There is no fracture or dislocation. There is moderate to severe osteoarthritis of the medial compartment with joint space narrowing and osteophyte formation. Findings have progressed since the prior study. There are mild degenerative changes involving the lateral and patellofemoral compartments. The soft tissues are unremarkable. There is no joint effusion. XR/XR knee RT 4V IMPRESSION: Osteoarthritis of the right knee as described. Electronically signed by: Rafael Maravilla MD 08/21/2024 11:23 AM EDT
--- OUTSIDE RECORDS SUMMARY | 2024-08-21 12:00 | XMS_ITS | Encounter Summary ---
Author Organization [employer] [facility] Address [address] [facility] [address] [place] [address] Care Team Providers Care Night Baker Name Role Phone Elaina Wilhelm MD Primary Care Provider [phone] Reason for Referral * Imaging (Routine) - Closed Specialty Diagnoses / Procedures Referred By Contjoao t Referred To Contact Radiology Diagnoses Transaminitis Procedures US Abdomen Complete Elaina Wilhelm MD [address] [place] [address] Phone: tel: fax: [address] Phone: tel: fax: Referral ID Status Reason Start Date Expiration Date Visits Re quested Visits Authorized [id number] Closed 05/25/2023 05/24/2024 1 1 Encounter Details Date Type Department Care Team (Late st Contact Info) Description 05/25/2023 Orders Only [facility] [address] [place], [place] [phone] Elaina Wilhelm MD [address] [place], [place] [phone] Transaminitis (Primary Dx); Morbid obesity (CMS/HCC) Social [...] documented as of this encounter Care Teams Night Baker Relationship Specialty Start Date End Date Elaina Wilhelm MD [address] [place] [phone] PCP - General Internal Medicine 10/06/20 documented as of this encounter
--- OUTSIDE RECORDS SUMMARY | 2024-08-21 12:00 | XMS_ITS | Encounter Summary ---
Author Organization [employer] Address [address] [facility] [address] [place] [address] Care Team Providers Care Paper Wood Cutter Name Role Phone Elaina Wilhelm MD Primary Care Provider [phone] Encounter Details Date Type Department Care Team ([facility] st Contact Info) Description 06/07/2024 Orders Only [facility] [address] [place], [place] [phone] Elaina Wilhelm MD [address] [place] [address] Social History Tobacco Use Types Packs/Day Years [...] documented as of this encounter Care Teams Paper Wood Cutter Relationship Specialty Start Date End Date Elaina Wilhelm MD [address] [place] [phone] PCP - General Internal Medicine 10/06/20 documented as of this encounter
--- OUTSIDE RECORDS SUMMARY | 2024-08-21 12:00 | XMS_ITS | Encounter Summary ---
Author Organization [employer] [facility] Address [address] [facility] 7 [place] [address] Care Team Providers Care It Program Auditor Name Role Phone Elaina Wilhelm MD Primary Care Provider [phone] Reason for Visit * Reason Onset Date Comments Results 08/14/2024 Encounter Details Date Type Department Care Team ([facility] Contact Info) Description 08/14/2024 Telephone [facility] [address] [place], [place] [phone] Elaina Wilhelm MD [address] [place] [address] Results Social History Tobacco Use Types Packs/Day Years [...] the past 12 months, has t he [facility], gas, oil or water company threatened to [...] encounter Miscellaneous Notes * Telephone Encounter - Nacho Rapp - 08/21/2024 9:50 AM EDT Tc from pt returning call regarding prior message. Contact pt at [phone] Pt can answer the phone soon now that he is on break * Telephone Encounter - Hilary Díaz - 08/19/2024 12:14 PM EDT Tc from pt returning call. Pt state gets out of work at 4:30. 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 Left voicemail to call clinic back with number. documented in this encounter Plan of Treatment Not on file documented as of this encounter Visit Diagnoses Not on filedocumented in this encounter Additional Health Concerns Assessment Noted Time PHQ-9 Depression Total Score: 0 08/10/19 25 3:49 PM EDT documented as of this encounter Care Teams It Program Auditor Relationship Specialty Start Date End Date Elaina Wilhelm MD [address] [place] [phone] PCP - General Internal Medicine 10/06/20 documented as of this encounter
--- OUTSIDE RECORDS SUMMARY | 2024-08-21 12:00 | XMS_ITS | Clinical Summary ---
Author Organization [employer] Address [address] [facility] 7t [place] [address] Care Team Providers Care Suction Operator Name Role Phone Elaina Wilhelm MD Primary Care Provider [phone] Allergies No known active allergies Medications cholecalciferol [...] day 100 g 1 08/10/19 25 Active Alcohol Swabs (Alcohol Pads) 70 % padsIndications :Morbid obesity (CMS/HCC) To use once a week. 50 each 08/13/19 25 Active Diclofenac Sodium 1 % gelIndications: [...] Encounters Date Type Department Care Team Description 08/14/2024 Telephone [facility] [address] [place] [address] Elaina Wilhelm MD Results 08/13/2024 Telephone [facility] [address] [place] [address] Elaina Wilhelm MD Results 08/12/2024 Orders Only [facility] [address] [place] [address] Elaina Wilhelm MD Morbid obesity (CMS/HCC) (Primary Dx) 08/09/2024 4:00 PM EDT Office Visit [facility] [address] [place] [address] Elaina Wilhelm MD Benign essential hypertension (Primary [...] muscle, initial encounter 08/09/2024 Travel 08/08/2024 Telephone [facility] [address] [place] [address] Elaina Wilhelm MD chart prep 08/02/2024 Patient Outreach [facility] [address] [place] [address] Elaina Wilhelm MD Pre-visit Planning ((Unable to reach for PVP screening, LVM)) 2024 Telephone [facility] [address] [place] [address] Elaina Wilhelm MD Prior Authorization ([employer] ) 06/07/2024 Orders Only [facility] [address] [place] [address] Elaina Wilhelm MD 06/07/2024 Telephone [facility] [address] [place] [address] Elaina Wilhelm MD Prior Authorization 06/04/2024 Telephone [facility] [address] [place] [address] Jessie Mcnally RN Error (VOID this visit) 06/04/2024 Telephone [facility] [address] [place] [address] Jessie Mcnally, KANDI Results from Last 3 Months Immunizations Name Administration [...] 08/09/2025 08/09/2024 Depression Screening 08/09/2025 08/09/2024, 08/10/19 25 SDOH Screening 08/09/2025 08/09/2024 DTaP/Tdap/Td Vaccines (2 - Td or Tdap) 06/27/2027 06/27/2017 Lipid Panel 08/09/2029 08/09/2024, 10/2024, 05/24/2023, Additional history exists RSV Patients and Patients [...] Name Priority Date/Time Associated Diagnosis Comments XR KNEE 4+ VIEWS RIGHT Routine 08/21/2024 10:19 AM EDT Chronic pain of right knee LIPID PANEL, STANDARD Routine 08/09/2024 4:17 PM EDT Dyslipidemia XR LUMBAR SPINE 2-3 VIEWS Routine 06/03/2024 [...] Relevant to Health Maintenance Results * XR Knee 4+ Views Right (08/21/2024 10:19 AM EDT) Anatomical Region Laterality Modality Lower Extremities, Knee Right [facility] 08/21/2024 10:1 9 AM EDT Narrative 08/21/2024 11:26 AM EDT ?[facility] ?[address] ?[place] [address] ?XRay Report ? Signed ? Patient: Taylor Woods,Jerald ?MR#: M ?? [id number] ? : 1970 ?Acct:[id number] ? Age/Sex: 54 / M ?ADM Date: 08/21/24 ? Loc: HO.HHCX ? Attending Dr: Elaina Wilhelm MD ? Ordering Physician: Elaina Wilhelm MD ?? Date of Service: 08/21/24 ?? Procedure(s): XR knee RT 4V ?? Accession Number(s): [id number] ? cc: Elaina Wilhelm MD ? EXAMINATION: ??XR KNEE 4 OR MORE VIEWS RIGHT ? HISTORY: right knee pain ? COMPARISON: Comparison is made with the prior examination dated ?? 04/13/2023. ? FINDINGS: ? Four views of the right knee are submitted. ??Osseous mineralization is ?? normal. ??There is no fracture or dislocation. ??There is moderate to ?? severe osteoarthritis of the medial compartment with joint space ?? narrowing and osteophyte formation. Findings have progressed since the ?? prior study. There are mild degenerative changes involving the lateral ?? and patellofemoral compartments. ??The soft tissues are unremarkable. ?? There is no joint effusion. ? XR/XR knee RT 4V ?? IMPRESSION: ? Osteoarthritis of the right knee as described. ? Electronically signed by: ??Rafael Maravilla MD ??08/21/2024 11:23 AM EDT ? Dictated By: ?Rafael Maravilla MD ? Signed By: ?<Electronically signed by Rafael Maravilla MD in OV> ?08/21/24 1123 ? DD/ 1019 ? TD/TT: 08/21/24 1020 ? Machine Shop Helper: ? Procedure Note Dania, Image - 08/21/[address] [address] XRay Report Signed Patient: Jerald Matos#: M [id number] : 1970Acct:[id number] Age/Sex: 54 / MADM Date: 08/21/24 Loc: HO.HHCX Attending Dr: Elaina Wilhelm MD Ordering Physician: Elaina Wilhelm MD Date of Service: 08/21/24 Procedure(s): XR knee RT 4V Accession Number(s): [id number] cc: Elaina Wilhelm MD EXAMINATION: XR KNEE 4 OR MORE VIEWS RIGHT HISTORY: right knee pain COMPARISON: Comparison is made with the prior examination dated 04/13/2023. FINDINGS: Four views of the right knee are submitted. Osseous mineralization is normal. There is no fracture or dislocation. There is moderate to severe osteoarthritis of the medial compartment with joint space narrowing and osteophyte formation. Findings have progressed since the prior study. There are mild degenerative changes involving the lateral and patellofemoral compartments. The soft tissues are unremarkable. There is no joint effusion. XR/XR knee RT 4V IMPRESSION: Osteoarthritis of the right knee as described. Electronically signed by: Rafael Maravilla MD 08/21/2024 11:23 AM EDT RP Dictated By: Rafael Maravilla MD Signed By: <Electronically signed by Rafael Maravilla MD in OV> 08/21/24 1123 DD/ 1019 TD/TT: 08/21/24 1020 Machine Shop Helper: Elaina Wilhelm MD IMG XR PROCEDURES Edited Re sult - Final * (ABNORMAL) Lipid Panel, Standard (08/09/2024 4:17 PM EDT) Only the most recent of2 resultswithin the time period is included. Triglycerides 162(H) <150 mg/dL [facility] Comment:Desirable Triglyceri de: less than 150 mg/dLBorderline High Triglyceride 150-199 mg/dLHigh Triglyceride: 200-499 mg/dLVery High Triglyceride: greater than or equal to 5OO mg/dL Cholesterol 227(H) <200 mg/dL [facility] Comment:Desirable Cholestero l: less than 200 mg/dLBorderline High Cholesterol: 200-239 mg/dLHigh Cholesterol: greater than 239 mg/dL LDL Cholesterol Calculated 149(H) <100 mg/dL [facility] Comment:Desirable LDL: less than 100 mg/dLNear Optimal/Above Optimal LDL: 110- 129 mg/dLBorderline High LDL: 130-159 mg/dLHigh LDL: 160-189 mg/dLVery High LDL: greater than or equal to 190 mg/dL HDL Cholesterol 46 >40 mg/dL [facility] Comment:Desirable HDL: great er than 40 mg/dL Note: This HDL assay may give artificially low results in patients with liver disease. Blood Venous blood specimen / Unknown 08/09/2024 4:17 PM EDT 08/09/2024 5:47 PM EDT us Elaina Wilhelm MD LAB BLOOD ORDERABLES Final Result [facility] [address] [place] [address] [phone] * XR Lumbar Spine 2-3 Views (06/03/2024 4:37 PM EST) Anatomical Region Laterality Modality Spine, L-spine Radiographic Lalita ging 06/03/2024 4:37 PM EST Narrative 06/03/2024 4:39 PM EST ? [facility] ?[address] ?[place] [address] ?XRay Report ? Signed ? Patient: Brandon WoodsJerald ?MR#: M ?? [id number] ? : 1970 ?Acct:[id number] ? Age/Sex: 53 / M ?ADM Date: 06/03/24 ? Loc: HO.XRAY ? Attending Dr: Elaina Wilhelm MD ? Ordering Physician: Elaina Wilhelm MD ?? Date of Service: 06/03/24 ?? Procedure(s): XR lumbar spine 2-3V ?? Accession Number(s): [id number] ? cc: Elaina Wilhelm MD ? CLINICAL [...] DD/ 1637 ? TD/TT: 06/03/24 1637 ? Machine Shop Helper: ? Procedure Note Dondorothykenjilisater, Image - 06/03/[address] [address] XRay Report Signed Patient: Jerald MatosMR#: M [id number] : 1970Acct:[id number] Age/Sex: 53 / MADM Date: 06/03/24 Loc: HO.JUAN Attending Dr: Elaina Wilhelm MD Ordering Physician: Elaina Wilhelm MD Date of Service: 06/03/24 Procedure(s): XR lumbar spine 2-3V Accession Number(s): [id number] cc: Elaina Wilhelm MD CLINICAL HISTORY: Low [...] in OV> 06/03/24 1638 DD/ 1637 TD/TT: 06/03/247 Machine Shop Helper: us Elaina Wilhelm MD IMG XR PROCEDURES Final Res ult * TSH W/Reflex to FT4 (06/03/2024 9:31 AM EST) TSH reflex Free T4 2.15 0.32 - 4.0 uIU/mL [facility] Blood Venous blood specimen / Unknown 06/03/2024 9:31 AM EST 06/03/2024 9:31 AM EST us Elaina Wilhelm MD LAB BLOOD ORDERABLES Final Result [facility] [address] [place] [address] [phone] * (ABNORMAL) CBC auto differential (06/03/2024 9:31 AM EST) Pathologist [facility] White Blood Count 5.1 4.8 - 10.8 X10*3/uL [facility] Red Blood Count 4.82 4.60 - 5.80 X10*6/uL [facility] Hemoglobin 14.2 14.0 - 18.0 g/dl [facility] Hematocrit 42.1 42.0 - 52.0 % [facility] Mean Corpuscular Volume 87.3 80.0 - 98.0 fL [facility] Mean Corpuscular Hemoglobin 29.5 27.0 - 33.0 pg [facility] Mean Corpuscular HGB Conc 33.7 31.0 - 36.0 g/dl [facility] Red Cell Distribution Width 12.0 11.0 - 16.0 % [facility] Platelet Count 246 160 - 400 X10*3/uL [facility] Mean Platelet Volume 10.0 9.4 - 12.4 fL [facility] Neutrophils Percent Auto 59.7 45 - 73 % [facility] Imm Gran Pct Auto 0.6(H) 0.0 - 0.4 % [facility] Lymphocytes Percent Auto 28.6 20 - 40 % [facility] Monocytes Percent Auto 7.2 2 - 11 % [facility] Eosinophils Percent Auto 3.1 0 - 4 % [facility] Basophils Percent Auto 0.8 0 - 2 % [facility] NRBC Pct Auto 0.0 0.0 - 0.2 /100WBC [facility] Neutrophils Absolute Auto 3.1 2.0 - 8.3 x10*3/uL [facility] Imm Gran Abs Auto 0.03 0.00 - 0.03 X10*3/uL [facility] Lymphocytes Absolute Auto 1.5 1.2 - 4.9 X10*3/uL [facility] Monocytes Absolute Auto 0.4 0.1 - 1.2 X10*3/uL [facility] Eosinophils Absolute Auto 0.2 0.0 - 0.4 X10*3/uL [facility] Basophils Absolute Auto 0.0 0.0 - 0.2 X10*3/uL [facility] NRBC Abs Auto 0.000 0.0 - 0.012 X10*3/uL [facility] Blood Venous blood specimen / Unknown 06/03/2024 9:31 AM EST 06/03/2024 9:31 AM EST us Elaina Wilhelm MD LAB BLOOD ORDERABLES Final Result [facility] [address] [place] [address] [phone] * (ABNORMAL) Comprehensive Metabolic Panel (06/03/2024 9:31 AM EST) Sodium 137 135 - 145 mmol/L [facility] Potassium 4.1 3.3 - 5.1 mmol/L [facility] Chloride 107 96 - 108 mmol/L [facility] Carbon Dioxide 24 22 - 29 mmol/L [facility] Anion Gap 10(L) 12 - 20 [facility] Urea Nitrogen (BUN) 14 9 - 16 mg/dL [facility] Creatinine, Serum 0.87 0.5 - 1.4 mg/dL [facility] Estimated Glomerular Filt Rate >60 [facility] Comment:Chronic Kidney Disea se: Estimated GFR < 60 mL/min/1.35v4Nnqnwm Kidney Disease: Estimated GFR < 15 mL/min/1.73m2 Glucose 99 60 - 115 mg/dL [facility] Calcium 9.2 8.4 - 10.2 mg/dL [facility] Bilirubin, Total 0.7 0.0 - 1.0 mg/dL [facility] Aspartate Amino Transferase 29 5 - 37 U/L [facility] Alanine Aminotransferase 36 0 - 40 U/L [facility] Total Protein 7.8 6.5 - 8.0 g/dL [facility] Albumin Level 4.1 3.5 - 5.0 g/dL [facility] Alkaline Phosphatase 74 39 - 117 U/L [facility] Blood Venous blood specimen / Unknown 06/03/2024 9:31 AM EST 06/03/2024 9:31 AM EST us Elaina Wilhelm MD LAB BLOOD ORDERABLES Final Result [facility] [address] [place] [phone] * HIV-1/2 Antigen and Antibodies, Fourth Generation, with Reflexes (05/24/2023 10:22 AM EST) HIV AB/AG Nonreactive Nonreactive [facility] Comment:HIV-1 p24 Ag and/or HIV-1/HIV-2 Ab not detected.A test result that is nonreactive does not exclude thepossibility of exposure to or infection with HIV-1 and/orHIV-2. Nonreactive results in this assay for individualswith prior exposure to HIV-1 and/or HIV-2 may be due toantigen and antibody levels that are below the limit ofdetection of this assay.The Gnammo HIV Ag/Ab Combo assay result andsupplemental assay results should be interpreted inconjunction with the patient's clinical presentation,history and other laboratory results. If the results areinconsistent with clinical evidence, additional testing issuggested to confirm the result. Blood Venous blood specimen / Unknown 05/24/2023 10:22 AM EST 05/24/2023 2:09 PM EST us Elaina Wilhelm MD LAB BLOOD ORDERABLES Final Result [facility] [address] [place] [address] [phone] * HEPATITIS C ANTIBODY RFLX (12/26/2020 9:25 AM EDT) Hepatitis C Antibody Nonreactive Nonreactive [facility] Comment: Antibodies to HCV not detected; does not exclude early acute HCV infection. 12/26/2020 9:25 AM EDT us Elaina Wilhelm MD HISTORICAL/NON ORDERABLE LA BS Final Result Performing Organization Address City/[facility]/ZIP Co de Phone Number [facility] [address] [place] [address], [place] from Last 3 Months or Most Recently Relevant to Health Maintenance Insurance [facility] Care Teams Suction Operator Relationship Specialty Start Date End Date Elaina Wilhelm MD [address] [place] [phone] PCP - General Internal Medicine 10/06/20
--- OUTSIDE RECORDS SUMMARY | 2024-08-21 12:00 | XMS_ITS | Encounter Summary ---
Author Organization [employer] Address [address] [facility] 7t [place] [address] Care Team Providers Care Lean Manufacturing Coordinator Name Role Phone Elaina Wilhelm MD Primary Care Provider [phone] Encounter Details Date Type Department Care Team ([facility] st Contact Info) Description 08/28/2023 Orders Only [facility] [address] [place], [place] [phone] Elaina Wilhelm MD [address] [place] [address] Severe obesity (BMI >= 40) (CMS/HCC) Social [...] documented as of this encounter Care Teams Lean Manufacturing Coordinator Relationship Specialty Start Date End Date Elaina Wilhelm MD [address] [place] [phone] PCP - General Internal Medicine 10/06/20 documented as of this encounter
--- OUTSIDE RECORDS SUMMARY | 2024-08-21 12:00 | XMS_ITS | Encounter Summary ---
Author Organization [employer] [facility] Address [address] [facility] [address] [place] [address] Care Team Providers Care Certified Genetic Counselor Name Role Phone Elaina Wilhelm MD Primary Care Provider [phone] Reason for Visit * Reason Onset Date Comments chart prep 08/08/2024 Encounter Details Date Type Department Care Team ([facility] st Contact Info) Description 08/08/[address] [facility] [address] [place], [place] [phone] Eliana Wilhelm MD [address] [place] [address] chart prep Social History Tobacco Use Types [...] documented as of this encounter Care Teams Certified Genetic Counselor Relationship Specialty Start Date End Date Elaina Wilhelm MD [address] [place] [address] PCP - General Internal Medicine 10/06/20 documented as of this encounter
--- OUTSIDE RECORDS SUMMARY | 2024-08-21 12:00 | XMS_ITS | Encounter Summary ---
Author Organization [employer] [facility] Address [address] [facility] 7 [place] [address] Care Team Providers Care Space And Missile Defense Operations Name Role Phone Elaina Wilhelm MD Primary Care Provider [phone] Reason for Visit * Reason Comments Pre-visit Planning (Unable to reach for PVP screening, LVM) Encounter Details Date Type Department Care Team ([facility] Contact Info) Description 08/02/2024 Patient Outreach [facility] [address] [place] [address] Elaina Wilhelm MD [address] [place] [address] Pre-visit Planning ((Unable to reach for PVP [...] documented as of this encounter Care Teams Space And Missile Defense Operations Relationship Specialty Start Date End Date Elaina Wilhelm MD [address] [place] [phone] PCP - General Internal Medicine 10/06/20 documented as of this encounter
--- OUTSIDE RECORDS SUMMARY | 2024-08-21 12:00 | XMS_ITS | Encounter Summary ---
Author Organization [employer] [facility] Address [address] [place] [address] [address] [place] [address] Care Team Providers Care Acting Teacher Name Role Phone Elaina Wilhelm MD Primary Care Provider [phone] Reason for Referral * Medications - Authorized Specialty Diagnoses / Procedures Referred By Contac t Referred To Contact Diagnoses Morbid obesity (CMS/HCC) Elaina Wilhelm MD [address] [place] [phone] Phone: tel: fax: Referral ID Status Reason Start Date Expiration Date V isits Requested Visits Authorized [id number] Authorized 1 1 * Imaging (Routine) - Authorized Specialty Diagnoses / Procedures Referred By Contac t Referred To Contact Radiology Diagnoses Steatosis of liver Procedures US Abdomen Complete Elaina Wilhelm MD [address] [place] [address] Phone: tel: fax: [address] Phone: tel: fax: Referral ID Status Reason Start Date Expiration Date V isits Requested Visits Authorized [id number] Authorized 08/09/2024 08/09/2025 1 1 Encounter Details Date Type Department Care Team (Late st Contact Info) Description 08/09/2024 4:00 PM EDT Office Visit [facility] [address] [place] [address] Elaina Wilhelm MD [address] [place] [address] Benign essential hypertension (Primary Dx); Dyslipidemia; Steatosis [...] patient had to travel and could not order picker/assembler the prescription. He was told to get [...] index (BMI) of40.0 to 44.9 in adult ([facility]) Reviewed indications for pharmacotherapy with patient, which [...] recommended reduction of 20-30% of maintenance calories; banking center manager referral offered. Recommended to decrease soda and sugary beverage consumption. Recommended at least 20 g per meal of protein to assist with satiety. Recommended at least 150 min/week of moderate intensity exercise. Screening for colon cancer - Cologuard?? colon cancer screening; Future Morbid obesity ([facility]) Comments: Weight loss recommended Orders: - Tirzepatide-Weight [...] BY MOUTH EVERY DAY IN THE MORNING * Fiona Carvajal RN - 08/09/2024 4:00 PM EDT TC to patient. Rang once and then line went . Attempted to call back, and the line went again after 1 ring. documented in this encounter Plan of Treatment Scheduled Orders Name Type Priority Associated Diagnoses Orde r Schedule US Abdomen Complete Imaging Routine Steatosis of liver Expected: 08/09/2024, Expires: 08/09/2025 Cologuard?? colon cancer screening Lab Routine Screening for colon cancer Expected: 08/09/2024 (Approximate), Expires: 08/09/2025 documented as of this encounter Procedures Procedure Name Priority Date/Time Associated Diagnosis Comments XR KNEE 4+ VIEWS RIGHT Routine 08/21/2024 10:19 AM EDT Chronic pain of right knee LIPID PANEL, STANDARD Routine 08/09/2024 4:17 PM EDT Dyslipidemia documented in this encounter Results * XR Knee 4+ Views Right (08/21/2024 10:19 AM EDT) Anatomical Region Laterality Modality Lower Extremities, Knee Right Radiogra phic Imaging 08/21/2024 10:1 9 AM EDT Narrative 08/21/2024 11:26 AM EDT ?[facility] ?[address] ?[place] [address] ?XRay Report ? Signed ? Patient: Taylor Woods,Jerald ?MR#: M ?? [id number] ? : 1970 ?Acct:[id number] ? Age/Sex: 54 / M ?ADM Date: 03/26/25 ? Loc: HO.HHCX ? Attending Dr: Elaina Wilhelm MD ? Ordering Physician: Elaina Wilhelm MD ?? Date of Service: 08/21/24 ?? Procedure(s): XR knee RT 4V ?? Accession Number(s): [id number] ? cc: Elaina Wilhelm MD ? EXAMINATION: [...] DD/ 1019 ? TD/TT: 08/21/24 1020 ? Auto Bumper Straightener: ? Procedure Note Osito Najera - 08/21/2024 [place] [address] XRay Report Signed Patient: Jerald Matos#: M [id number] : 1970Acct:[id number] Age/Sex: 54 / MADM Date: 08/21/24 Loc: HO.HHCX Attending Dr: Elaina Wilhelm MD Ordering Physician: Elaina Wilhelm MD Date of Service: 08/21/24 Procedure(s): XR knee RT 4V Accession Number(s): [id number] cc: Elaina Wilhelm MD EXAMINATION: XR KNEE [...] 08/21/24 1123 DD/ 1019 TD/TT: 08/21/24 1020 Auto Bumper Straightener: us Elaina Wilhelm MD IMG XR PROCEDURES Edited Re sult - Final * (ABNORMAL) Lipid Panel, Standard (08/09/2024 4:17 PM EDT) Triglycerides 162(H) <150 mg/dL [facility] Comment:Desirable Triglyceri de: less than 150 mg/dLBorderline High Triglyceride 150-199 mg/dLHigh Triglyceride: 200-499 mg/dLVery High Triglyceride: greater than or equal to 5OO mg/dL Cholesterol 227(H) <200 mg/dL [facility] Comment:Desirable Cholestero l: less than 200 mg/dLBorderline High Cholesterol: 200-239 mg/dLHigh Cholesterol: greater than 239 mg/dL LDL Cholesterol Calculated 149(H) <100 mg/dL [facility] Comment:Desirable LDL: less than 100 mg/dLNear Optimal/Above Optimal LDL: 110- 129 mg/dLBorderline High LDL: 130-159 mg/dLHigh LDL: 160-189 mg/dLVery High LDL: greater than or equal to 190 mg/dL HDL Cholesterol 46 >40 mg/dL [facility] Comment:Desirable HDL: great er than 40 mg/dL Note: This HDL assay may give artificially low results in patients with liver disease. Blood Venous blood specimen / Unknown 08/09/2024 4:17 PM EDT 08/09/2024 5:47 PM EDT Elaina Wilhelm MD LAB BLOOD ORDERABLES Final Result [facility] [address] [place] [phone] [phone] documented in this encounter Visit Diagnoses Diagnosis Benign essential [...] documented as of this encounter Care Teams Acting Teacher Relationship Specialty Start Date End Date Elaina Wilhelm MD [address] [place] [phone] PCP - General Internal Medicine 10/06/20 documented as of this encounter
--- OUTSIDE RECORDS SUMMARY | 2024-08-21 12:00 | XMS_ITS | Encounter Summary ---
Author Organization [employer] [facility] Address [address] [facility] 7t [place] [address] Care Team Providers Care Riveter Hand Name Role Phone Elaina Wilhelm MD Primary Care Provider [phone] Encounter Details Date Type Department Care Team ([facility] st Contact Info) Description 08/12/[address] [facility] [address] [place] [address] Elaina Wilhelm MD [address] [place] [address] Morbid obesity (CMS/HCC) (Primary Dx) Social History Tobacco Use Types Packs/Day Years [...] as of this encounter Visit Diagnoses Diagnosis Morbid obesity (CMS/HCC)- Primary Morbid obesity documented in this encounter Additional Health Concerns Assessment Noted Time PHQ-9 Depression Total Score: 0 08/10/19 25 3:49 PM EDT documented as of this encounter Care Teams Riveter Hand Relationship Specialty Start Date End Date Elaina Wilhelm MD [address] [place] [phone] PCP - General Internal Medicine 10/06/20 documented as of this encounter
--- OUTSIDE RECORDS SUMMARY | 2024-08-21 12:00 | XMS_ITS | Encounter Summary ---
Author Organization [email or web address] [facility] Address [address] [place] [address] Care Team Providers Care Construction Director Name Role Phone Elaina Wilhelm MD Primary Care Provider [phone] Reason for Visit * Reason Onset Date Comments Results 08/13/2024 Encounter Details Date Type Department Care Team ([facility] st Contact Info) Description 08/13/2024 Telephone [facility] [address], [place] [phone] Elaina Wilhelm MD [address] [place] [address] Results Social History Tobacco Use Types Packs/Day [...] encounter Miscellaneous Notes * Telephone Encounter - Cande Loco RN - 08/13/2024 12:51 PM EDT TC to pt. qualitative field coordinator used. No answer. Voicemail left. documented in this encounter Plan of Treatment Not on file documented as of this encounter Visit Diagnoses Not on filedocumented in this encounter Additional Health Concerns Assessment Noted Time PHQ-9 Depression Total Score: 0 08/10/19 25 3:49 PM EDT documented as of this encounter Care Teams Construction Director Relationship Specialty Start Date End Date Elaina Wilhelm MD [address] [place] [id number] PCP - General Internal Medicine 10/06/20 documented as of this encounter
--- OUTSIDE RECORDS SUMMARY | 2024-08-21 12:00 | XMS_ITS | Encounter Summary ---
Author Organization [facility] Address [address] [place] [address] Care Team Providers Care Vat House Laborer Name Role Phone Elaina Wilhelm MD Primary Care Provider [phone] Encounter Details Date Type Department Care Team [...] documented as of this encounter Care Teams Vat House Laborer Relationship Specialty Start Date End Date Elaina Wilhelm MD [address] [place] [id number] PCP - General Internal Medicine 10/06/20 documented as of this encounter
== END 2024-08-21 10:19 | disposition home or self-care (01) ==
LOC: HO.HHCX 10:18
PROVIDERS: Visit Provider Internal Medicine
DX: M25.561 Pain in right knee (principal); G89.29 Other chronic pain
CPT/HCPCS: 73564

== ENCOUNTER → 2024-08-21 10:19 | Outpatient (BNV) | payer OTHER, SELFPAY | PROVIDERS: Visit Provider Radiology Diagnostic Radiology | DX: M17.11 Unilateral primary osteoarthritis, right knee (principal) | CPT/HCPCS: 73564 ==

== ENCOUNTER 2025-01-14 09:14 | Outpatient (REF) | payer OTHER, SELFPAY ==
--- NOTE | ~2025-01-14 | XR_ITS ---
EXAMINATION: XR HAND, LEFT CLINICAL INFORMATION: Left hand swelling and pain since yesterday after trauma to the hand COMPARISON: None available. TECHNIQUE: PA, lateral, and oblique views of the left hand. FINDINGS: No acute cortical disruption or gross malalignment. No lytic or blastic lesion. No metallic or radiopaque foreign body. No subcutaneous emphysema. No bony erosions. There is preservation of the joint spaces. XR/XR hand LT min 3V IMPRESSION: Normal x-ray, left hand. Electronically signed by: Trevor Byrne MD 01/14/2025 10:12 AM EDT
== END 2025-01-14 09:15 | disposition home or self-care (01) ==
LOC: HO.HHCX 09:14
PROVIDERS: Visit Provider Internal Medicine Geriatric Medicine
DX: M79.642 Pain in left hand (principal); R22.32 Localized swelling, mass and lump, left upper limb
CPT/HCPCS: 73130

== ENCOUNTER → 2025-01-14 09:14 | Outpatient (BNV) | payer OTHER, SELFPAY | PROVIDERS: Visit Provider Radiology Diagnostic Radiology | DX: M79.642 Pain in left hand (principal) | CPT/HCPCS: 73130 ==